=== PATIENT | female | born 1990 | race Caucasian/White ===

== ENCOUNTER 2017-04-21 14:37 | Emergency (ER) | payer OTHER ==
[~2017-04-21] VITALS: Ht 165.1 cm; Wt 90.6 kg
[~2017-04-21 14:37] MED LIST: AUGMENTIN875 MG PO; ENDOCET 5-3251 EACH PO; PERCOCET 5/31 TABLET PO; PRENATAL1 EACH PO
[2017-04-21 15:39] LABS: HEMATOCRIT 39.1 % (36.0-46.0); MCH 30.7 PG (29.0-34.0); MCHC 33.5 G/DL (30.0-36.0); MCV 91.6 FL (83-99); MEAN PLAT.VOLUME 9.4 uM^3 (9.5-12.4); PLATELET COUNT 264 K/uL (156-360); RBC DIS.WIDTH-CV 12.5 % (11.8-14.6); RED BLOOD COUNT 4.27 M/uL (3.80-5.20); WHITE BLOOD COUNT 6.8 K/uL (4.1-10.2)
[2017-04-21 15:48] LABS: CHLORIDE 103 mEq/L (99-109); POTASSIUM 4.4 mEq/L (3.7-5.4); SODIUM 138 mEq/L (136-147)
[2017-04-21 15:51] LABS: GLUCOSE 96 mg/dL (70-99)
[2017-04-21 15:51] LABS: ADD MIUA? NO; BILIRUBIN NEGATIVE; BLOOD NEGATIVE; COLOR YELLOW ((YELLOW)); GLUCOSE (STRIP) NEGATIVE; KETONES 5; LEUKOCYTES NEGATIVE; NITRITE NEGATIVE; PROTEIN (STRIP) NEGATIVE; UCUL ADDED? NO
[2017-04-21 15:52] LABS: ANION GAP 10 MEQ/L (2-14); TOTAL BILIRUBIN 0.2 mg/dL (0.0-1.0)
[2017-04-21 15:54] LABS: ALKALINE PHOSPHATASE 70 IU/L (3-129); GFR ESTIMATE (CALCULATED) > 59 mL/min/
[2017-04-21 15:55] LABS: UREA NITROGEN (BUN) 9 mg/dL (9-23)
[2017-04-21 16:03] LABS: QUANTITATIVE HCG < 4.0 MIU/ML
[2017-04-21 19:04] VITALS: BP 154/92
[2017-04-22 13:46] LABS: CHLAMYDIA TRACHOMATIS POSITIVE; NEISSERIA GONORRHOEAE NEGATIVE
== END 2017-04-21 19:04 | disposition home or self-care (01) ==
LOC: EME 14:37
PROVIDERS: Physician Assistant Medical
DX: R10.2 Pelvic and perineal pain (principal); R10.30 Lower abdominal pain, unspecified; J45.909 Unspecified asthma, uncomplicated; F17.200 Nicotine dependence, unspecified, uncomplicated
CPT/HCPCS: 76856; 80053; 81003; 84702; 85027; 87210; 87491; 87591; 99281; 99283

== ENCOUNTER 2017-10-24 17:06 | Emergency (ER) | payer OTHER ==
[~2017-10-24] VITALS: Ht 165.1 cm; Wt 103.7 kg
[2017-10-24 18:19] LABS: QUANTITATIVE HCG 13959.8 MIU/ML
[2017-10-24 19:29] LABS: BASOPHIL (%) 1.1 % (0-1); BASOPHIL COUNT 0.1 K/uL (0-0.1); EOSINOPHIL (%) 3.5 % (0-5); EOSINOPHIL COUNT 0.2 K/uL (0-0.3); HEMATOCRIT 38.9 % (36.0-46.0); HEMOGLOBIN 13.3 G/DL (11.9-15.5); IMMATURE GRANULOCYTE (%) 0.4 % (0.0-0.7); LYMPHOCYTE (%) 34.7 % (15-42); LYMPHOCYTE COUNT 1.9 K/uL (1.0-2.8); MCH 31.1 PG (29.0-34.0); MCHC 34.2 G/DL (30.0-36.0); MCV 90.9 FL (83-99); MONOCYTE (%) 8.6 % (3-12); MONOCYTE COUNT 0.5 K/uL (0-0.8); NEUTROPHIL (%) 51.7 % (45-76); NEUTROPHIL COUNT 2.8 K/uL (1.8-6.4); PLATELET COUNT 312 K/uL (156-360); RBC DIS.WIDTH-SD 43.1 % (39-53); RED BLOOD COUNT 4.28 M/uL (3.80-5.20); WHITE BLOOD COUNT 5.4 K/uL (4.1-10.2)
[2017-10-24 19:53] LABS: CHLORIDE 105 mEq/L (99-109); SODIUM 136 mEq/L (136-147)
[2017-10-24 19:54] LABS: GLUCOSE 87 mg/dL (70-99)
[2017-10-24 19:58] LABS: CREATININE 0.6 mg/dL (0.6-1.3); GFR ESTIMATE (CALCULATED) > 59 mL/min/
[2017-10-24 19:59] LABS: UREA NITROGEN (BUN) 7 mg/dL (9-23)
[2017-10-24 20:49] LABS: APPEARANCE SL.HAZY ((CLEAR)); BILIRUBIN NEGATIVE; BLOOD NEGATIVE; COLOR YELLOW ((YELLOW)); GLUCOSE (STRIP) NEGATIVE; KETONES NEGATIVE; LEUKOCYTES TRACE; NITRITE NEGATIVE; PROTEIN (STRIP) NEGATIVE; SPECIFIC GRAVITY 1.017 (1.000-1.030)
[2017-10-24 20:58] LABS: BACTERIA RARE /HPF; EPITHELIAL CELLS RARE /HPF; MUCUS TRACE /LPF; RED BLOOD CELLS 0-5 /HPF (0-5); UCUL ADDED? NO; WHITE BLOOD CELLS 0-5 /HPF (0-5)
[2017-10-24 21:22] VITALS: BP 125/90
[2017-10-25 08:20] LABS: SOURCE SWAB
== END 2017-10-24 21:22 | disposition home or self-care (01) ==
LOC: EME 17:06
PROVIDERS: Physician Assistant Medical
DX: O26.891 Other specified pregnancy related conditions, first trimester (principal); R10.30 Lower abdominal pain, unspecified; R51 Headache; N89.8 Other specified noninflammatory disorders of vagina; O99.331 Smoking (tobacco) complicating pregnancy, first trimester; F17.200 Nicotine dependence, unspecified, uncomplicated; Z3A.01 Less than 8 weeks gestation of pregnancy
CPT/HCPCS: 76801; 80048; 81003; 84702; 85025; 87210; 87491; 87591; 99281; 99284

== ENCOUNTER → 2017-12-06 | Outpatient (CLI) | payer OTHER | END | disposition home or self-care (01) | LOC: CDC 09:22 | DX: Z79.891 Long term (current) use of opiate analgesic (principal) | CPT/HCPCS: 93000 ==

== ENCOUNTER 2018-04-12 16:41 | Outpatient (CLI) | payer OTHER ==
[~2018-04-12] VITALS: Ht 160 cm; Wt 97.7 kg
[2018-04-12 17:01] VITALS: BP 115/68
[2018-04-12] MEDS ORDERED: METHADOSE40 MG PO (17:13)
[2018-04-12] MEDS ORDERED: PRENATAL TABLE1 EAC3 PO (17:14)
[2018-04-12] MEDS ORDERED: REGLAN10 MG PO (17:14)
[2018-04-12] MEDS ORDERED: ZOFRAN ODT8 MG PO (17:15)
== END 2018-04-12 18:27 | disposition home or self-care (01) ==
LOC: LDRP-OP 16:41 → 2WEST 16:42 → LDRP-OP 07-19 10:34
DX: O26.893 Other specified pregnancy related conditions, third trimester (principal); O99.323 Drug use complicating pregnancy, third trimester; F11.20 Opioid dependence, uncomplicated; O99.213 Obesity complicating pregnancy, third trimester; O99.333 Smoking (tobacco) complicating pregnancy, third trimester; O21.9 Vomiting of pregnancy, unspecified; Z86.19 Personal history of other infectious and parasitic diseases; Z87.410 Personal history of cervical dysplasia; Z90.49 Acquired absence of other specified parts of digestive tract; Z81.4 Family history of other substance abuse and dependence; Z80.3 Family history of malignant neoplasm of breast; Z81.1 Family history of alcohol abuse and dependence; Z3A.30 30 weeks gestation of pregnancy
CPT/HCPCS: 59025; G0378

== ENCOUNTER 2018-05-13 10:07 | Outpatient (CLI) | payer OTHER ==
[~2018-05-13 10:07] MED LIST changes: +METHADOSE40 MG PO; +PRENATAL TABLE1 EAC3 PO; +REGLAN10 MG PO; +ZOFRAN ODT8 MG PO
[2018-05-13 10:19] VITALS: BP 120/61
== END 2018-05-13 11:48 | disposition home or self-care (01) ==
LOC: LDRP-OP 10:07 → 2WEST 10:08 → LDRP-OP 07-19 19:39
DX: O36.5930 Maternal care for other known or suspected poor fetal growth, third trimester, not applicable or unspecified (principal); O99.323 Drug use complicating pregnancy, third trimester; F11.20 Opioid dependence, uncomplicated; O99.013 Anemia complicating pregnancy, third trimester; O99.213 Obesity complicating pregnancy, third trimester; E66.9 Obesity, unspecified; Z68.41 Body mass index [BMI] 40.0-44.9, adult; O99.333 Smoking (tobacco) complicating pregnancy, third trimester; F17.200 Nicotine dependence, unspecified, uncomplicated; O98.413 Viral hepatitis complicating pregnancy, third trimester; B19.20 Unspecified viral hepatitis C without hepatic coma; O99.89 Other specified diseases and conditions complicating pregnancy, childbirth and the puerperium; N87.9 Dysplasia of cervix uteri, unspecified; Z3A.34 34 weeks gestation of pregnancy; O99.343 Other mental disorders complicating pregnancy, third trimester; F31.9 Bipolar disorder, unspecified
CPT/HCPCS: 59025; G0378; J0702